=== PATIENT | female | born 1975 | race Caucasian/White ===

== ENCOUNTER 2020-07-26 23:12 | Emergency (ER) | payer OTHER, SELFPAY ==
[2020-07-26 23:15] VITALS: BP 121/71; PULSE 82; RESP 18; TEMP 37.6; O2SAT 98; BMI 21.2
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
[2020-07-26 23:35] LABS: Hematocrit 35.8 % (36-46); Hemoglobin 11.6 g/dL (12.0-16.0)
[2020-07-26 23:40] LABS: INR 1.1 (0.9-1.3); Prothrombin Time 12.4 SECONDS (10.1-12.7)
[2020-07-27 00:19] VITALS: BP 103/55; PULSE 62; RESP 18; O2SAT 98
== END 2020-07-27 00:19 | disposition home or self-care (01) ==
PROVIDERS: Emergency Provider Emergency Medicine
DX: S00.03XA Contusion of scalp, initial encounter (principal); W22.8XXA Striking against or struck by other objects, initial encounter; Z79.01 Long term (current) use of anticoagulants
CPT/HCPCS: 36415; 70450; 85014; 85018; 85610; 99284